=== PATIENT | male | born 1990 | race African-American/Black ===

== ENCOUNTER 2018-02-25 21:16 | Inpatient (IN) | payer MEDICARE ==
[~2018-02-25] VITALS: Ht 182.9 cm; Wt 79.1 kg
[~2018-02-25 21:16] MED LIST: CARV12.52 PO; HYDR-4077 PO; LISI-603 PO; NIFE10CA2 PO
[2018-02-25 22:51] LABS: BASOPHILS % (AUTO) 0.8 % (0.0-2.0); EOSINOPHILS % (AUTO) 5.2 % (0.0-6.0); HEMATOCRIT 22 % (39-51); HEMOGLOBIN 7.3 g/dL (13.5-17.5); LYMPHOCYTES # (AUTO) 0.7 /CMM (0.8-4.8); LYMPHOCYTES % (AUTO) 14.8 % (20.0-44.0); MEAN CORPUSCULAR HGB CONC 33 g/dl (31.0-36.0); MEAN CORPUSCULAR VOLUME 96 fL (80-96); MONOCYTES # (AUTO) 0.5 /CMM (0.1-1.30); NEUTROPHILS # (AUTO) 3.1 /CMM (1.8-8.9); NEUTROPHILS % (AUTO) 68.2 % (43.0-81.0); PLATELET COUNT (AUTO) 177 /CMM (150-450); RED BLOOD CELL COUNT(AUTO) 2.32 MIL/uL (4.5-6.0); WHITE BLOOD COUNT (AUTO) 4.6 K/uL (4.3-11.0)
[2018-02-25 23:01] LABS: CALCIUM, SERUM 8.4 mg/dL (8.5-10.1)
[2018-02-25 23:03] LABS: CREATININE 13.6 mg/dL (0.6-1.3); POTASSIUM 6.7 mmol/L (3.5-5.1)
--- NOTE | 2018-02-25 23:20 | NUR ---
PT BIBSELF COMPLAINING OF ABNORMAL LABS. PT STATES CLINIC WOULDN'T DO DIALYSIS ON HIM DUE TO HIGH POTASSIUM. PT AAOX4. RESPIRATIONS EVEN AND UNLABORED. NO ACUTE DISTRESS NOTED. PT PLACED ON MONITOR, WILL CONTINUE TO MONITOR
[2018-02-25] MEDS ORDERED: SODIUM POLYSTYRENE SULFONATE 15 G/60 ML BOTTLE ONE (23:21)
[2018-02-25] MEDS ORDERED: FUROSEMIDE 20 MG/2 ML VIAL ONE (23:21)
[2018-02-25] MEDS ORDERED: CALCIUM CHLORIDE 1,000 MG/10 ML DISP.SYRIN ONE (23:22)
[2018-02-25] MEDS ORDERED: SODIUM BICARBONATE SYR 50 MEQ/50 ML DISP.SYRIN ONE (23:22)
[2018-02-25] MEDS ORDERED: SODIUM BICARBONATE SYR 50 MEQ/50 ML DISP.SYRIN IV ONE (23:30)
[2018-02-25] MEDS ORDERED: ALBUTEROL FS 2.5 MG/3 ML VIAL.NEB NEB ONE (23:30)
[2018-02-25] MEDS ORDERED: FUROSEMIDE 40 MG/4 ML VIAL IV ONE (23:30)
[2018-02-25] MEDS ORDERED: CALCIUM CHLORIDE 1,000 MG/10 ML DISP.SYRIN IV ONE (23:30)
[2018-02-25] MEDS ORDERED: SODIUM POLYSTYRENE SULFONATE 15 G/60 ML BOTTLE PO ONE (23:30)
[2018-02-25] MEDS ORDERED: ALBUTEROL FS 2.5 MG/3 ML VIAL.NEB ONE (23:43)
[2018-02-26] MEDS ORDERED: HYDR-4077 PO (00:18)
[2018-02-26] MEDS ORDERED: NIFE30TA91 PO (00:18)
[2018-02-26] MEDS ORDERED: LOSA1TAB36 PO (00:18)
[2018-02-26] MEDS ORDERED: CARV12.52 PO (00:18)
[2018-02-26 00:25] VITALS: BP 158/101
--- NOTE | 2018-02-26 00:26 | NUR ---
PT TRANSFERRED PER ACLS PROTOCOL
--- NOTE | 2018-02-26 00:35 | NUR ---
TELE/RN NOTES SPOKE TO DR. HERNADEZ. SHE WILL BE ORDERING 1 UNIT PRBC HOWEVER WITH ORDERS NOT TO GIVE TONIGHT. TO BE GIVEN WITH DIALYSIS IN AM. READBACK PER PROTOCOL, WILL ENDORSE TO DAY SHIFT
--- NOTE | 2018-02-26 00:50 | NUR ---
TELE/RN OPENING NOTES PT RECEIVED TO UNIT FROM ER VIA WHEELCHAIR. A/OX3. ON ROOM AIR, BREATHING EVEN AND UNLABORED. DENIES SOB AND PAIN. IN NO ACUTE DISTRESS. IV TO LAC PATENT AND INTACT. ORIENTED PT TO ROOM AND CALL LIGHT BED IN LOW/LOCKED POSITION WITH CALL LIGHT IN REACH. BILATERAL UPPER SIDE RAILS IN PLACE. PLACED ON TELE MONITOR, SHOWING SR 80'S. WILL CONTINUE TO MONITOR
[2018-02-26 05:00] VITALS: BP 184/104
--- NOTE | 2018-02-26 05:35 | NUR ---
TELE/RN NOTES BP ELEVATED TWICE: 187/104, HR 76 & 184/114, HR 78. PAGED MD HERNADEZ FOR PRN ORDERS. PT TO HAVE HD TODAY BUT TIME IS UNKNOWN. AWAITING RESPONSE.
--- NOTE | 2018-02-26 06:12 | NUR ---
TELE/RN NOTES MD HERNADEZ PAGED AGAIN. AWAITING RESPONSE
[2018-02-26] MEDS ORDERED: NIFEdipine (10MG) 10 MG CAPSULE ONE (06:37)
[2018-02-26] MEDS: NIFEdipine (10MG) 10 MG CAPSULE PO SCH ×3 (06:44→16:24)
--- NOTE | 2018-02-26 06:45 | NUR ---
TELE/RN NOTES WOOL CLASSER AWARE OF ELEVATED BP AND PLAN FOR HD TODAY. UNABLE TO OBTAIN PRN ORDER AT THIS TIME. RECOMMENDED GIVING SCHEDULED PROCARDIA EARLY TO CONTROL BP. RN UNABLE TO PULL PROCARDIA FROM EITHER PYXIS. WOOL CLASSER OVERRIDE MEDICATION AND ADMINISTERED TO PT. WILL ENDORSE TO DAY SHIFT RN AND MONITOR FOR HYPOTENSION.
--- NOTE | 2018-02-26 07:10 | NUR ---
TELE/RN CLOSING NOTES PT ASLEEP IN BED. ON ROOM AIR, BREATHING EVEN AND UNLABORED. A/OX3. IN NO ACUTE DISTRESS. DENIES SOB OR PAIN. IV TO LAC PATENT AND INTACT. RFA SHUNT PRESENT. ALL EXTREMITIES NOTED WITH EDEMA. NO SIGNIFICANT CHANGES OVERNIGHT. EXTERNAL VENEER DRIER FEEDER SHOWS SR 83. ALL NEEDS MET. PT AWARE OF PLAN FOR HD TODAY. BED IN LOW/LOCKED POSITION WITH CALL LIGHT IN REACH. BILATERAL UPPER SIDE RAILS IN PLACE. WILL ENDORSE TO DAY SHIFT RN SPENCER.
[2018-02-26 07:45] LABS: CALCIUM, SERUM 8.7 mg/dL (8.5-10.1)
[2018-02-26 07:49] LABS: CREATININE 14.3 mg/dL (0.6-1.3); POTASSIUM 6.9 mmol/L (3.5-5.1)
[2018-02-26 08:00] VITALS: BP_SYST 149; BP_SYST 151; BP_DIAS 83; BP_DIAS 87
[2018-02-26] MEDS: CARVEDILOL 12.5 MG TABLET PO SCH ×2 (08:06→20:30)
--- NOTE | 2018-02-26 08:10 | NUR ---
TELE/RN OPENING NOTE THE PATIENT IS RECEIVED IN BED AWAKE. PATIENT IS ALERT AND ORIENTED X4. IN ROOM AIR AND DENIES SOB. RESPIRATION REGULAR AND UNLABORED. DENIES PAIN. LAC G 18 PATENT AND SALINE LOCKED. RIGHT ARM AV SHUNT POSITIVE FOR BRUIT AND THRILL. BED LOW AND LOCKED. SIDE RAILS UP X2. CALL LIGHT WITHIN REACH. WILL CONTINUE TO MONITOR.
[2018-02-26] MEDS ORDERED: LISINOPRIL (20MG) 20 MG TABLET PO SCH (09:00)
--- NOTE | 2018-02-26 09:30 | NUR ---
TELE/RN NOTE DR HOBBS IS MADE AWARE OF POTASSIUM LEVEL OF 6.9. PER DR HOBBS THE PATIENT WILL HAVE DIALYSIS TODAY.
[2018-02-26] MEDS: LOSARTAN/HCTZ 50-12.5MG/ 1 EA TABLET PO SCH (11:17)
--- NOTE | 2018-02-26 11:18 | NUR ---
TELE/RN NOTE REYZAAR GIVEN LATER THAT SCHEDULED ADMINISTRATION TIME PER PATIENT REQUEST. BLOOD PRESSURE IS 164/89. WILL CONTINUE TO MONITOR.
[2018-02-26 12:00] VITALS: BP 149/83
[2018-02-26 16:00] VITALS: BP 149/82
--- NOTE | 2018-02-26 18:34 | NUR ---
TELE/RN CLOSING NOTE THE PATIENT ALERT AND ORIENTED X4. DENIES SOB. IN ROOM AIR AND SATURATION AT 97%. DENIES PAIN. THE PATIENT IN NO APPARENT DISTRESS. LAC G 18 PATENT AND SALINE LOCKED. GETTING DIALYSIS NOW. BED LOW AND LOCKED. SIDE RAILS UP X3. CALL LIGHT WITHIN REACH. WILL CONTINUE TO MONITOR.
--- NOTE | 2018-02-26 18:35 | NUR ---
WILL ENDORSE TO SILVER PLATER.
--- NOTE | 2018-02-26 18:54 | NUR ---
TELE/RN NOTE TELE BOX READING IS SR 86.
--- NOTE | 2018-02-26 19:15 | NUR ---
TELE/RN NOTE THE PATIENT REQUESTING TO TAKE HIS COREG DUE AT 1800 AFTER DIALYSIS WHICH SHOULD FINISH IN 30 MIN. GEOLOGIST IS ENDORSED.
[2018-02-26 20:00] VITALS: BP 145/71
--- NOTE | 2018-02-26 20:15 | NUR ---
RECIEVED ; ALERT AND ORIENTATED SMILING ANDHD UNDING. HD NURSE INFORMED ME 4 LITERS REMOVED. PATIENT'S SKIN WARM AND DRY . VISITOR AT THE BEDSIDE.
--- NOTE | 2018-02-26 20:35 | NUR ---
blood bank was called stated blood good for 3 days spoke to Arlyn. Called MD Terry and told her that the 1 unit PRBC WAS NOT GIVEN WITH THE HD TODAY , AND COULD IT BE GIVEN TOMORROW IN THE AM WITH ORDERED HD. PATIENT MADE ONEILL THAT HE WOULD BE RECIEVING BLOOD WITH HD IN THE AM.
[2018-02-27] VITALS: BP 133/65
[2018-02-27 04:00] VITALS: BP 162/87
--- NOTE | 2018-02-27 06:19 | NUR ---
MR. MCGEE UP AND ABOUT AMBULATING IN THE ROOM. WHEN I ASKED HIM TO SIGN THE CONSENT FOR THE BLOOD TRANSFUSION TO BE GIVEN TODAY WITH HD HE COMMENTED, " NO BLOOD, I FEEL GREAT." EXPLAINED TO HIM ABOUT THE NEED FOR 1 UNIT TO REPLACE THE BLOOD LEVEL WHICH IS 7.2. HE STATED HE KNOWS ABOUT HBG AND HCT, HE DOESN'T WANT THE BLOOD. THEY CONSENT TO REFUE THE BLOOD SIGNED. HD LAST NIGHT FINISHED AT 1999.
[2018-02-27 06:20] VITALS: BP 162/87
--- NOTE | 2018-02-27 07:25 | NUR ---
INK JET OPERATOR INITIAL NOTES Report received at bedside. Patient received in bed, awake, and comfortable. Alert and oriented x4, verbally responsive. Denies any pain at the moment. No SOB/labored breathing noted. Planned HD today with 1 unit of blood ordered: Patient refused unit of blood today but okay to get HD. Explained risks vs benefits but patient continues to refuse blood transfusion today. Safety measures in place. Will continue to monitor and assess patient. Call light within reach. TELE: SR 92 Addendum: 02/27/18 at 1128 by MISHA ATKINSON RN MD made aware of blood transfusion refusal and critical lab value
[2018-02-27 07:40] LABS: BASOPHILS % (AUTO) 1.1 % (0.0-2.0); HEMATOCRIT 22 % (39-51); HEMOGLOBIN 7.3 g/dL (13.5-17.5); LYMPHOCYTES # (AUTO) 0.6 /CMM (0.8-4.8); LYMPHOCYTES % (AUTO) 14.3 % (20.0-44.0); MEAN CORPUSCULAR HGB CONC 34 g/dl (31.0-36.0); MEAN CORPUSCULAR VOLUME 95 fL (80-96); MONOCYTES # (AUTO) 0.6 /CMM (0.1-1.30); MONOCYTES % (AUTO) 14.9 % (2.0-12.0); NEUTROPHILS # (AUTO) 2.7 /CMM (1.8-8.9); NEUTROPHILS % (AUTO) 66.7 % (43.0-81.0); PLATELET COUNT (AUTO) 163 /CMM (150-450); RED BLOOD CELL COUNT(AUTO) 2.29 MIL/uL (4.5-6.0)
[2018-02-27 07:49] LABS: CALCIUM, SERUM 8.2 mg/dL (8.5-10.1)
[2018-02-27 07:54] LABS: CREATININE 10.9 mg/dL (0.6-1.3); POTASSIUM 6.2 mmol/L (3.5-5.1)
[2018-02-27 08:00] VITALS: BP 144/85
[2018-02-27] MEDS: CARVEDILOL 12.5 MG TABLET PO SCH ×2 (08:36→17:09)
[2018-02-27] MEDS: NIFEdipine (10MG) 10 MG CAPSULE PO SCH ×3 (09:00→16:30)
[2018-02-27] MEDS: LOSARTAN/HCTZ 50-12.5MG/ 1 EA TABLET PO SCH (09:00)
--- NOTE | 2018-02-27 09:23 | NUR ---
BASKET PERSON NON-ADMIN NOTES 2 BP meds not given. HD scheduled today. Sebastián (Dialysis nurse) just arrived and made aware of non-admin BP meds and confirmed. Per patient, he normally takes BP meds after HD. BB given: HR 95. Patient still continues to refuse 1 unit of blood to be transfused during HD. Explained risks vs benefits x3 but still refused. Will continue to monitor and assess patient.
[2018-02-27 16:00] VITALS: BP 157/79
--- NOTE | 2018-02-27 18:28 | NUR ---
HIGH MAN CLOSING NOTES Patient remained in bed, intermittently sleeping, easily aroused. Alert and oriented x4, verbally responsive. Denies any type of pain. Not in any type of distress. Today's HD output 3.0L. No SOB or labored breathing noted. Afebrile. All due meds given and tolerated. Kept patient clean and dry. All needs provided and met. Safety measures in place. Bed in locked and lowest position with call light within reach. Will endorse to oncoming shift nurse Addendum: 02/27/18 at 1829 by MISHA ATKINSON RN TELE: Sinus Tachy 104
--- NOTE | 2018-02-27 19:25 | NUR ---
TELERN ASLEEP, EASILY AROUSABLE. V/S STABLE FOR NOW. NO OTHER NEEDS MADE.
[2018-02-27 20:00] VITALS: BP 146/77
--- NOTE | 2018-02-27 22:50 | NUR ---
TELERN REMAINS UNCHANGED. REMAINS SR ON THE MONITOR. CLOSELY WATCHED.
--- NOTE | 2018-02-28 00:20 | NUR ---
TELERN ASLEEP, SR ON THE MONITOR. CONTINUED MONITORING
[2018-02-28 04:00] VITALS: BP 166/102
[2018-02-28 06:30] LABS: BASOPHILS % (AUTO) 0.9 % (0.0-2.0); EOSINOPHILS % (AUTO) 3.2 % (0.0-6.0); HEMATOCRIT 22 % (39-51); HEMOGLOBIN 7.3 g/dL (13.5-17.5); LYMPHOCYTES # (AUTO) 0.7 /CMM (0.8-4.8); LYMPHOCYTES % (AUTO) 17.7 % (20.0-44.0); MEAN CORPUSCULAR HGB CONC 34 g/dl (31.0-36.0); MEAN CORPUSCULAR VOLUME 94 fL (80-96); MONOCYTES # (AUTO) 0.7 /CMM (0.1-1.30); MONOCYTES % (AUTO) 17.7 % (2.0-12.0); NEUTROPHILS # (AUTO) 2.4 /CMM (1.8-8.9); NEUTROPHILS % (AUTO) 60.5 % (43.0-81.0); PLATELET COUNT (AUTO) 159 /CMM (150-450); RED BLOOD CELL COUNT(AUTO) 2.33 MIL/uL (4.5-6.0)
[2018-02-28 06:49] LABS: CALCIUM, SERUM 8.4 mg/dL (8.5-10.1); POTASSIUM 5.5 mmol/L (3.5-5.1)
[2018-02-28 06:53] LABS: CREATININE 9.7 mg/dL (0.6-1.3)
--- NOTE | 2018-02-28 06:55 | NUR ---
TELERN REMAINS SR ON THE MONITOR. ALL NEEDS ATTENDED.
--- NOTE | 2018-02-28 07:15 | NUR ---
CROP AND SOIL TECHNICIAN INITIAL NOTES Report received at bedside. Patient received in chair, awake, and comfortable. Alert and oriented x4, verbally responsive. Denies any pain at the moment. No SOB/labored breathing noted. Safety measures in place. Will continue to monitor and assess patient. Call light within reach. TELE: SR 82
[2018-02-28] MEDS: CARVEDILOL 12.5 MG TABLET PO SCH ×2 (07:45→17:04)
[2018-02-28 08:00] VITALS: BP 155/80
[2018-02-28] MEDS: NIFEdipine (10MG) 10 MG CAPSULE PO SCH ×3 (08:58→17:04)
[2018-02-28] MEDS: LOSARTAN/HCTZ 50-12.5MG/ 1 EA TABLET PO SCH (08:59)
[2018-02-28 12:00] VITALS: BP 157/97
[2018-02-28 16:00] VITALS: BP 141/76
--- NOTE | 2018-02-28 18:16 | NUR ---
READING RECOVERY TEACHER CLOSING NOTES Patient remained in bed, intermittently sleeping, easily aroused. Alert and oriented x4, verbally responsive. Denies any type of pain. Not in any type of distress. HD tomorrow AM as ordered 03/01/18. No SOB or labored breathing noted. Afebrile. All due meds given and tolerated. Kept patient clean and dry. All needs provided and met. Safety measures in place. Bed in locked and lowest position with call light within reach. Will endorse to oncoming shift nurse. TELE: Sinus Rhythm 98-99; asymptomatic
--- NOTE | 2018-02-28 19:30 | NUR ---
RN NOTE; RECEIVED PT IN BED SLEEPING. AROUSES EASILY. BREATHING EVENLY. NO SOB. NAD .SKIN WARM AND DRY. SR W/ RATE OF 90s ON TELE MONITOR . CALL LIGHT WITHIN REACH. WILL CONT TO MONITOR,
[2018-02-28 20:00] VITALS: BP 152/87
[2018-03-01] VITALS: BP 149/83
[2018-03-01 04:00] VITALS: BP 159/98
--- NOTE | 2018-03-01 06:48 | NUR ---
PT IN BED SLEEPING. AROUSES EASILY. BREATHING EVENLY. NO SOB. NO ACUTE EVENT DURING THE NIGHT. REMAINED SR ON TELE MONITOR W/ NO S/S OR C/O DISCOMFORT .NEEDS ATTENDED. CALL LIGHT WITHIN REACH, WILL CONT TO MONITOR AND WILL ENDORSE TO AM SHIFT FOR SPENCER.
[2018-03-01 07:03] LABS: CALCIUM, SERUM 8.4 mg/dL (8.5-10.1); POTASSIUM 5.7 mmol/L (3.5-5.1)
--- NOTE | 2018-03-01 07:15 | NUR ---
BEER STILL RUNNER COMPOUNDER INITIAL NOTES Report received at bedside. Patient received in bed, sleeping comfortably, easily aroused. Alert and oriented x4, verbally responsive. Denies any pain at the moment. No SOB/labored breathing noted. Planned HD today. Safety measures in place. Will continue to monitor and assess patient. Call light within reach. Addendum: 03/01/18 at 0751 by MISHA ATKINSON RN LEADS REPLACED: TELE Sinus Rhythm 95
[2018-03-01 07:38] LABS: CREATININE 12.4 mg/dL (0.6-1.3)
[2018-03-01] MEDS: NIFEdipine (10MG) 10 MG CAPSULE PO SCH ×3 (08:10→16:35)
[2018-03-01] MEDS: CARVEDILOL 12.5 MG TABLET PO SCH ×2 (08:11→18:30)
[2018-03-01] MEDS: LOSARTAN/HCTZ 50-12.5MG/ 1 EA TABLET PO SCH (08:11)
[2018-03-01] MEDS ORDERED: hydrALAZINE HCL 50 MG TABLET PO SCH (13:00)
--- NOTE | 2018-03-01 14:15 | NUR ---
MS PARKER NOTES Patient is alert and oriented x4, no episodes of altered mental status. Patient pulled out his IV access and when asked why, he responded, "It was bothering me and I've had it since I got here and it hasn't really been used. So I tried to pull it out but it started bleeding." Removed IV access with cath tip intact. Put pressure on the site and bleeding stopped. Patient actually ripped off on of the tubes connecting the port to the cath. Bed linens changed and blankets replaced. Kept patient clean and dry. Addendum: 03/01/18 at 1924 by MISHA ATKINSON RN Provider made aware of no IV access. Patient refused to have IV insertion. Waiting for further instructions from Provider (DAMON)
[2018-03-01 16:00] VITALS: BP 140/94
--- NOTE | 2018-03-01 18:27 | NUR ---
MS RN CLOSING NOTES Patient remained in bed, awake, and verbally responsive. Alert and oriented x4. Denies any pain at the moment. Denies any N/V/Dizziness. Not in any type of distress. No SOB/labored breathing noted. New order of Hydralazine to control blood pressure. HD today 03/01/18 with 3.0L output. Afebrile. No complaints of any chest pain, dizziness or weakness. All due meds given and tolerated. All anticipated needs provided and met. Safety measures in place. Bed in locked and lowest position with call light within reach. Will endorse to oncoming shift nurse.
--- NOTE | 2018-03-01 19:39 | NUR ---
RN MS OPENING NOTES RECEIVED PATIENT STANDING BY THE BED, LOOKING OUT THE WINDOW, LISTENING TO MUSIC. ALERT AND ORIENTED X4, VERBALLY RESPONSIVE, ABLE TO MAKE NEEDS KNOWN. BREATHING EVEN AND UNLABORED. NO SOB NOTED. TOLERATING ROOM AIR. NO IV ACCESS DUE TO PATIENT PULLING IT OUT TODAY. MD WAS MADE AWARE - AWAITING FOR FURTHER INSTRUCTIONS. SKIN DRY AND WARM TO TOUCH. AFEBRILE. NO COMPLAINTS OF PAIN OR DISCOMFORT. NO FACIAL GRIMACING. RIGHT UPPER ARM HD CATH INTACT. ALL OTHER NEEDS ATTENDED TO. SAFETY MEASURES IN PLACE. CALL LIGHT WITHIN REACH. WILL CONTINUE TO MONITOR.
[2018-03-01 20:00] VITALS: BP 169/98
[2018-03-01] MEDS: hydrALAZINE HCL 50 MG TABLET PO SCH (21:25)
--- NOTE | 2018-03-01 23:28 | NUR ---
RN MS NOTES ON-CALL MD NOTIFIED THAT PATIENT REFUSES TO HAVE IV ACCESS DESPITE EXPLANATION OF RISKS AND BENEFITS. PATIENT IS FOR D/C PLANNING TOMORROW. NO IV MEDS. PER MD, OK NOT TO HAVE IV ACCESS. ORDER NOTED AND CARRIED OUT.
[2018-03-02] MEDS: hydrALAZINE HCL 50 MG TABLET PO SCH ×3 (05:05→13:50)
--- NOTE | 2018-03-02 06:39 | NUR ---
RN MS CLOSING NOTES PATIENT IN BED AWAKE. NO ACUTE CHANGES THROUGHOUT SHIFT. BREATHING EVEN AND UNLABORED. NO SOB NOTED. TOLERATING ROOM AIR. NO IV ACCESS MD WAS MADE AWARE - SKIN DRY AND WARM TO TOUCH. AFEBRILE. NO COMPLAINTS OF PAIN OR DISCOMFORT. NO FACIAL GRIMACING. RIGHT UPPER ARM HD CATH INTACT. ALL OTHER NEEDS WERE ATTENDED TO. SAFETY MEASURES IN PLACE. CALL LIGHT WITHIN REACH. WILL ENDORSE TO ONCOMING NURSE FOR SPENCER.
[2018-03-02 06:57] LABS: CALCIUM, SERUM 8.5 mg/dL (8.5-10.1); CREATININE 10.9 mg/dL (0.6-1.3); POTASSIUM 5.3 mmol/L (3.5-5.1)
[2018-03-02 08:00] VITALS: BP 198/126
--- NOTE | 2018-03-02 08:00 | NUR ---
MS RN NOTES RECEIVED PATIENT AWAKE IN BED. NO DISTRESS NOTED. CALL LIGHT WITHIN REACH. AV SHUNT ON JUDY INTACT WITH NO SWELLING, REDNESS, OR DRAINAGE NOTED AND WITH (+) BRUIT AND THRILL. NO C/O PAIN OR DISCOMFORT. BED AT LOW LOCK SETTING. ALL BELONGINGS KEPT NEAR BEDSIDE. WILL CONTINUE TO MONITOR.
[2018-03-02] MEDS: LOSARTAN/HCTZ 50-12.5MG/ 1 EA TABLET PO SCH (08:42)
[2018-03-02] MEDS: NIFEdipine (10MG) 10 MG CAPSULE PO SCH ×3 (08:42→13:38)
[2018-03-02] MEDS: CARVEDILOL 12.5 MG TABLET PO SCH (08:42)
[2018-03-02] MEDS ORDERED: NIFE-2 PO (11:50)
[2018-03-02 13:41] VITALS: BP 161/111
[2018-03-02 13:50] VITALS: BP 160/93
--- NOTE | 2018-03-02 15:10 | NUR ---
DISCHARGED PT HOME VIA TAXI WITH STABLE V/S.AMBULATORY WITH STEADY GAIT.NO IV ACCESS.DENIES ANY PAIN OR DISTRESS.JUDY HD ACCESS REMAINS INTACT WITH CLEAN AND DRY DRESSING.
== END 2018-03-02 15:00 | disposition home or self-care (01) | DRG 640 ==
LOC: ER 21:20 → TELE 02-26 00:03 → MED 03-01 10:14
PROVIDERS: ADMIT Internal Medicine
PROC: 5A1D70Z Performance of Urinary Filtration, Intermittent, Less than 6 Hours Per Day (ICD-10-PCS; principal; 2018-02-26)
PROC: 5A1D70Z Performance of Urinary Filtration, Intermittent, Less than 6 Hours Per Day (ICD-10-PCS; 2018-02-27)
PROC: 5A1D70Z Performance of Urinary Filtration, Intermittent, Less than 6 Hours Per Day (ICD-10-PCS; 2018-03-01)
DX: E87.5 Hyperkalemia (principal); N18.6 End stage renal disease; I12.0 Hypertensive chronic kidney disease with stage 5 chronic kidney disease or end stage renal disease; D63.1 Anemia in chronic kidney disease; E78.5 Hyperlipidemia, unspecified; F17.210 Nicotine dependence, cigarettes, uncomplicated; I25.10 Atherosclerotic heart disease of native coronary artery without angina pectoris; Z91.19 Patient's noncompliance with other medical treatment and regimen; F19.11 Other psychoactive substance abuse, in remission; D72.819 Decreased white blood cell count, unspecified; Z99.2 Dependence on renal dialysis
CPT/HCPCS: 36415; 80048-TC; 85025-TC; 85730-TC; 86850-TC; 86921-TC; 87081-TC; 90935-TC; A4606; A6403; G0378; J1940; J3490; Z7610

== ENCOUNTER 2020-03-16 18:45 | Inpatient (IN) | payer MEDICARE ==
[~2020-03-16] VITALS: Ht 182.9 cm; Wt 72.6 kg
[~2020-03-16 18:45] MED LIST changes: +LOSA1TAB36 PO; +NIFE-57 PO; -NIFE10CA2 PO
--- NOTE | 2020-03-16 19:00 | NUR ---
PT [id number], FROM HOME C/O NAUSEA AND VOMITING AND WEAKNESS, MISSED HD X3 DAYS. PT IS AAOX4, NOT IN RESPIRATORY DISTRESS, HOOKED TO GAME AUTHOR, KEPT RESTED AND COMFORTABLE. WILL CONTINUE TO MONITOR.
[2020-03-16] MEDS ORDERED: ONDANSETRON HCL/PF 4 MG/2 ML VIAL IVP ONE (19:30)
--- NOTE | 2020-03-16 19:31 | NUR ---
SEEN AND EXAMINED BY .
--- NOTE | 2020-03-16 19:40 | NUR ---
IV LINE ESTABLISHED BLOOD DRAWN AND SENT TO LAB.
[2020-03-16] MEDS ORDERED: ONDANSETRON HCL/PF 4 MG/2 ML VIAL ONE (19:43)
[2020-03-16 19:58] LABS: BASOPHILS % (AUTO) 0.9 % (0.0-2.0); EOSINOPHILS % (AUTO) 1.8 % (0.0-6.0); HEMATOCRIT 24 % (39-51); HEMOGLOBIN 7.8 g/dL (13.5-17.5); LYMPHOCYTES # (AUTO) 0.6 /CMM (0.8-4.8); LYMPHOCYTES % (AUTO) 12.7 % (20.0-44.0); MEAN CORPUSCULAR HGB CONC 33 g/dl (31.0-36.0); MEAN CORPUSCULAR VOLUME 94 fL (80-96); MONOCYTES # (AUTO) 0.3 /CMM (0.1-1.30); MONOCYTES % (AUTO) 6.7 % (2.0-12.0); NEUTROPHILS # (AUTO) 3.5 /CMM (1.8-8.9); NEUTROPHILS % (AUTO) 77.9 % (43.0-81.0); PLATELET COUNT (AUTO) 110 /CMM (150-450); RED BLOOD CELL COUNT(AUTO) 2.51 MIL/uL (4.5-6.0); WHITE BLOOD COUNT (AUTO) 4.5 K/uL (4.3-11.0)
--- NOTE | 2020-03-16 19:59 | NUR ---
COVID SWAB OBTAINED AND SENT TO LAB
[2020-03-16 20:29] LABS: ALBUMIN 3.5 g/dL (3.4-5.0); BILIRUBIN,DIRECT 0.1 mg/dL (0.0-0.2); BILIRUBIN,TOTAL 0.6 mg/dL (0.2-1.0); CALCIUM, SERUM 8.8 mg/dL (8.5-10.1); TOTAL PROTEIN, SERUM 7.3 g/dL (6.4-8.2)
[2020-03-16 20:31] LABS: CREATININE 23.8 mg/dL (0.6-1.3); POTASSIUM 7.5 mmol/L (3.5-5.1)
[2020-03-16] MEDS ORDERED: SODIUM POLYSTYRENE SULFONATE 15 G/60 ML BOTTLE ONE (20:58)
[2020-03-16] MEDS ORDERED: INSULIN REGULAR, HUMAN 100 UNIT/ML 10 ML VIAL ONE (20:59)
[2020-03-16] MEDS ORDERED: CALCIUM CHLORIDE 1,000 MG/10 ML DISP.SYRIN ONE (20:59)
[2020-03-16] MEDS ORDERED: DEXTROSE 50%-WATER 50 ML DISP.SYRIN ONE (20:59)
[2020-03-16] MEDS ORDERED: SODIUM BICARBONATE SYR 50 MEQ/50 ML DISP.SYRIN ONE (20:59)
[2020-03-16] MEDS ORDERED: SODIUM POLYSTYRENE SULFONATE 15 G/60 ML BOTTLE PO ONE (21:00)
[2020-03-16] MEDS ORDERED: SODIUM BICARBONATE SYR 100 MEQ in IV D5W 1,000 ML IV ONE (21:00)
[2020-03-16] MEDS ORDERED: INSULIN REGULAR, HUMAN 100 UNIT/ML 10 ML VIAL IV ONE (21:00)
[2020-03-16] MEDS ORDERED: CALCIUM CHLORIDE 1,000 MG/10 ML DISP.SYRIN IV ONE (21:00)
[2020-03-16] MEDS ORDERED: DEXTROSE 50%-WATER 50 ML DISP.SYRIN IV ONE (21:00)
--- NOTE | 2020-03-16 21:20 | NUR ---
pt ambulatory to the bathroom
[2020-03-16] MEDS ORDERED: SODIUM BICARBONATE SYR 50 MEQ/50 ML DISP.SYRIN IV ONE (21:30)
[2020-03-16] MEDS ORDERED: HYDROCODONE/APAP 5/325MG TABLET PO PRN (22:00)
[2020-03-16] MEDS ORDERED: ONDANSETRON HCL/PF 4 MG/2 ML VIAL IVP PRN (22:00)
[2020-03-16] MEDS ORDERED: HOME MED MISCELLANEOUS XX SCH (22:00)
[2020-03-16] MEDS ORDERED: MAGNESIUM HYDROXIDE 30 ML UDC PO PRN (22:00)
[2020-03-16] MEDS ORDERED: HYDROCODONE/APAP 10/325MG TABLET PO PRN (22:00)
[2020-03-16] MEDS ORDERED: TEMAZEPAM 15 MG CAPSULE PO PRN (22:00)
[2020-03-16] MEDS ORDERED: ACETAMINOPHEN 325 MG TABLET PO PRN (22:00)
[2020-03-16] MEDS ORDERED: Z GUARD REMEDY 2 OZ OINT TP PRN (22:00)
[2020-03-16] MEDS ORDERED: MAG HYDROX/AL HYDROX/SIMETH 30 ML UDC PO PRN (22:00)
[2020-03-16] MEDS ORDERED: hydrALAZINE HCL 50 MG TABLET ONE (22:36)
[2020-03-16] MEDS: hydrALAZINE HCL 50 MG TABLET PO SCH (22:42)
[2020-03-16] MEDS ORDERED: TEMAZEPAM 15 MG CAPSULE ONE (22:43)
--- NOTE | 2020-03-16 22:44 | NUR ---
restoril given as ordered per pt's request. will cont to monitor ,
--- NOTE | 2020-03-17 | NUR ---
Patient is resting comfortably in bed with eyes closed. Easily aroused. will cont to monitor ,
[2020-03-17 05:31] LABS: BASOPHILS % (AUTO) 1.1 % (0.0-2.0); EOSINOPHILS % (AUTO) 0.3 % (0.0-6.0); HEMATOCRIT 22 % (39-51); HEMOGLOBIN 7.2 g/dL (13.5-17.5); LYMPHOCYTES # (AUTO) 0.7 /CMM (0.8-4.8); LYMPHOCYTES % (AUTO) 17.9 % (20.0-44.0); MEAN CORPUSCULAR HGB CONC 33 g/dl (31.0-36.0); MEAN CORPUSCULAR VOLUME 93 fL (80-96); MONOCYTES # (AUTO) 0.3 /CMM (0.1-1.30); NEUTROPHILS # (AUTO) 2.9 /CMM (1.8-8.9); NEUTROPHILS % (AUTO) 72.7 % (43.0-81.0); PLATELET COUNT (AUTO) 92 /CMM (150-450); RED BLOOD CELL COUNT(AUTO) 2.37 MIL/uL (4.5-6.0)
[2020-03-17] MEDS ORDERED: HYDROCODONE/APAP 10/325MG TABLET ONE (05:35)
--- NOTE | 2020-03-17 05:40 | NUR ---
CALEB 10 GIVEN ORDERED PER PT'S REQUEST FOR C/O LOWER BAD PAIN. WILL CONT TO MONITOR Addendum: 03/17/20 at 0651 by JENNIFER *lower abd pain*
[2020-03-17 05:58] LABS: CALCIUM, SERUM 8.7 mg/dL (8.5-10.1); MAGNESIUM 3.3 mg/dL (1.8-2.4)
[2020-03-17 06:00] LABS: CREATININE 24.3 mg/dL (0.6-1.3); PHOSPHORUS 9.8 mg/dL (2.5-4.9); POTASSIUM 6.9 mmol/L (3.5-5.1)
--- NOTE | 2020-03-17 07:04 | NUR ---
Relayed potassium, BUN and Cr level to [employer] Teacher w/ no new order. pt is to receive HD today.
--- NOTE | 2020-03-17 07:14 | NUR ---
report given to Samy for SPENCER
--- NOTE | 2020-03-17 07:30 | NUR ---
RN ADMITTING NOTES; PT TRANSPORTED TO UNIT BY MARTI AT THIS TIME. PT AOX4. PT ABLE TO MAKE NEEDS KNOWN. NO SOB NOTED, NO C/O PAIN AT THIS TIME, NO S/S OF ANY ACUTE DISTRESS NOTED.PT STABLE ON RA. PT PLACED ON EXTERNAL TELE CHEESE WEIGHER READING SR IN THE 69. SKIN IS INTACT, PINK AND WARM TO TOUCH, PULSES ARE PRESENT BILATERALLY, GOOD CIRCULATION, CAPILLARY REFILL <3 SECONDS. ACTIVE BOWEL SOUNDS IN ALL FOUR QUADRANTS, ABDOMEN SOFT AND NON TENDER. LUNGS ARE CLEAR TO AUSCULTATION. RESPIRATIONS ARE EVEN AND UNLABORED WITH EQUAL RISE AND FALL IN CHEST. PT NOTED WITH IV ACCESS IN LEFT HAND G# 18, INTACT, PATENT AND FLUSHING WELL. RFA AV FISTULA NOTED. ALL BELONGINGS ACCOUNTED FOR AND FILED IN CHART. SAFETY PRECAUTION IN PLACE AND MAINTAINED AT ALL TIMES. BED IN LOWEST LOCKED POSITION, HOB ELEVATED, SIDE RAILS UP X 2, CALL LIGHT AND TABLE WITHIN REACH.
--- NOTE | 2020-03-17 07:32 | NUR ---
pt was transferred to 311 under ACLS.
[2020-03-17 08:00] VITALS: BP 207/124
[2020-03-17] MEDS: PANTOPRAZOLE 40 MG TABLET.DR PO SCH (08:33)
[2020-03-17] MEDS ORDERED: LISINOPRIL (20MG) 20 MG TABLET PO SCH (09:00)
[2020-03-17] MEDS ORDERED: hydrALAZINE HCL 50 MG TABLET PO SCH (09:00)
--- NOTE | 2020-03-17 09:02 | NUR ---
RN CLOSING NOTES PT AWAKE IN BED AT THIS TIME. PT REMAINED STABLE THROUGHOUT SHIFT. ALL CARE, NEED, MEDICATIONS AND TREATMENT ADMINISTERED ANTICIPATED PER ORDER. PT KEPT CLEAN AND DRY. IS S/P HD WITH 3L OUT. ASPIRATION AND SAFETY PRECAUTION IN PLACE AND MAINTAINED AT ALL TIMES. BED IN LOWEST LOCKED POSITION, HOB ELEVATED, SIDE RAILS UP X 2, CALL LIGHT AND TABLE WITHIN REACH. ENDORSED TO MANAGER AUTO NURSE FOR SPENCER
[2020-03-17] MEDS: CARVEDILOL 12.5 MG TABLET PO SCH ×2 (09:19→17:22)
[2020-03-17] MEDS: hydrALAZINE HCL 50 MG TABLET PO SCH ×2 (09:19→17:23)
[2020-03-17] MEDS: NIFEdipine XL (30MG) 30 MG TAB PO SCH ×2 (09:20→17:21)
[2020-03-17 12:00] VITALS: BP 194/94
[2020-03-17 16:00] VITALS: BP 174/92
[2020-03-17] MEDS ORDERED: SEVELAMER CARBONATE 800 MG TABLET PO SCH (18:00)
--- NOTE | 2020-03-17 19:10 | NUR ---
RN NOTE Patient Received. Patient is noted in bed, awake, alert and oriented x4. Currently on room air, breathing even and non labored. No signs of acute distress or shortness of breath. Patient is noted with IV site to left hand 18G noted to be patent and intact. Patient is also noted with RFA AV fistula noted to be intact with no bleeding noted. Patient continues on the tele monitor and noted to be NSR. Safety measures are in place, bed is in lowest position and locked. Call light within reach. All needs attended to promptly. Will continue plan of care as ordered.
[2020-03-17 20:00] VITALS: BP 153/95
[2020-03-18] VITALS: BP 173/89
[2020-03-18] MEDS: hydrALAZINE HCL 50 MG TABLET PO SCH ×4 (00:35→18:16)
[2020-03-18 04:00] VITALS: BP_SYST 117; BP_SYST 171; BP_DIAS 89
--- NOTE | 2020-03-18 06:03 | NUR ---
RN NOTE Patient was noted with elevated blood pressure of 186/85. Relayed to Dr. Mckenna. With no new orders at this time. Patient denies any signs and symptoms of hypertension. Patient is scheduled for blood pressure medications for AM.
--- NOTE | 2020-03-18 07:31 | NUR ---
RN NOTE Patient is noted in bed, awake, alert and oriented x4. Currently on room air, breathing even and non labored. No signs of acute distress or shortness of breath. Patient is noted with IV site to left hand 18G noted to be patent and intact. Patient is also noted with RFA AV fistula noted to be intact with no bleeding noted. Patient continues on the tele monitor and noted to be NSR. Safety measures are in place, bed is in lowest position and locked. Call light within reach. All needs attended to promptly. Will endorse to continue plan of care as ordered. Addendum: 03/19/20 at 0650 by MARY BYNUM RN ENTERED IN ERROR AT WRONG TIME.
[2020-03-18 08:00] VITALS: BP 197/104
[2020-03-18] MEDS: SEVELAMER CARBONATE 800 MG TABLET PO SCH ×3 (08:56→18:13)
[2020-03-18] MEDS: NIFEdipine XL (30MG) 30 MG TAB PO SCH ×2 (08:56→18:16)
[2020-03-18] MEDS: CARVEDILOL 12.5 MG TABLET PO SCH ×2 (08:58→18:17)
[2020-03-18] MEDS: PANTOPRAZOLE 40 MG TABLET.DR PO SCH (08:59)
[2020-03-18] MEDS: MINOXIDIL (2.5MG) 2.5 MG TABLET PO SCH (12:24)
[2020-03-18 12:47] VITALS: BP 188/103
[2020-03-18 16:00] VITALS: BP 154/94
--- NOTE | 2020-03-18 18:00 | NUR ---
RECEIVED PT. IN AM ALERT AND ORIENTED X4.BP HIGH.MEDS GIVEN.DIALYZED THIS JIN. 1.7 L REMOVED.
--- NOTE | 2020-03-18 19:31 | NUR ---
RN NOTE Patient is noted in bed, awake, alert and oriented x4. Currently on room air, breathing even and non labored. No signs of acute distress or shortness of breath. Patient is noted with IV site to left hand 18G noted to be patent and intact. Patient is also noted with RFA AV fistula noted to be intact with no bleeding noted. Patient continues on the tele monitor and noted to be NSR. Safety measures are in place, bed is in lowest position and locked. Call light within reach. All needs attended to promptly. Will endorse to continue plan of care as ordered.
[2020-03-18 20:26] VITALS: BP 149/85
[2020-03-19] VITALS (7 sets, daily range): BP systolic 146–165; BP diastolic 70–92
[2020-03-19 06:57] LABS: BASOPHILS # (AUTO) 0.1 /CMM (0.0-0.2); BASOPHILS % (AUTO) 2.5 % (0.0-2.0); EOSINOPHILS % (AUTO) 4.2 % (0.0-6.0); LYMPHOCYTES # (AUTO) 0.8 /CMM (0.8-4.8); MEAN CORPUSCULAR HGB CONC 34 g/dl (31.0-36.0); MEAN CORPUSCULAR VOLUME 91 fL (80-96); MONOCYTES # (AUTO) 0.3 /CMM (0.1-1.30); MONOCYTES % (AUTO) 13.7 % (2.0-12.0); NEUTROPHILS # (AUTO) 1.3 /CMM (1.8-8.9); NEUTROPHILS % (AUTO) 49.6 % (43.0-81.0); PLATELET COUNT (AUTO) 159 /CMM (150-450); RED BLOOD CELL COUNT(AUTO) 2.09 MIL/uL (4.5-6.0); WHITE BLOOD COUNT (AUTO) 2.5 K/uL (4.3-11.0)
[2020-03-19 07:09] LABS: CALCIUM, SERUM 8.4 mg/dL (8.5-10.1); MAGNESIUM 2.4 mg/dL (1.8-2.4); PHOSPHORUS 7.4 mg/dL (2.5-4.9); POTASSIUM 4.7 mmol/L (3.5-5.1)
[2020-03-19 07:21] LABS: CREATININE 12.3 mg/dL (0.6-1.3)
[2020-03-19 07:39] LABS: HEMATOCRIT 19 % (39-51); HEMOGLOBIN 6.5 g/dL (13.5-17.5)
--- NOTE | 2020-03-19 07:44 | NUR ---
RN NOTE Critical lab value of HCT of 19 and HGB of 6.5. Endorsed to morning shift to relay to MD.
[2020-03-19] MEDS: SEVELAMER CARBONATE 800 MG TABLET PO SCH ×3 (08:48→18:04)
[2020-03-19] MEDS: hydrALAZINE HCL 50 MG TABLET PO SCH ×3 (08:50→18:06)
[2020-03-19] MEDS: PANTOPRAZOLE 40 MG TABLET.DR PO SCH (08:50)
[2020-03-19] MEDS: CARVEDILOL 12.5 MG TABLET PO SCH ×2 (08:50→18:05)
[2020-03-19] MEDS: NIFEdipine XL (30MG) 30 MG TAB PO SCH ×2 (08:51→18:05)
[2020-03-19] MEDS: MINOXIDIL (2.5MG) 2.5 MG TABLET PO SCH (08:51)
--- NOTE | 2020-03-19 10:30 | NUR ---
dr. dinero here,aware of low blood count.orders given.
[2020-03-19 12:12] LABS: EOSINOPHILS % (MANUAL) 5 % (0-4); LYMPHOCYTES % (MANUAL) 25 % (16-48); MONOCYTES % (MANUAL) 14 % (0-11.0); NEUTROPHILS % (MANUAL) 56 (42-76)
[2020-03-19] MEDS ORDERED: MINO2.5T PO (14:31)
[2020-03-19] MEDS ORDERED: HYDR-4077 PO (14:31)
[2020-03-19] MEDS ORDERED: NIFE-35 PO (14:31)
[2020-03-19] MEDS ORDERED: CARV12.52 PO (14:31)
[2020-03-19] MEDS ORDERED: SEVE800T7 PO (14:31)
--- NOTE | 2020-03-19 18:55 | NUR ---
completed unit of prbc's.tolerated well.given all dc instructions and hep lock out.taken to lobby by trust and estates attorney.ambulating.to be picked up for dc home.
== END 2020-03-19 18:55 | disposition home or self-care (01) | DRG 640 ==
LOC: ER 18:52 → TRANSITION 21:18 → TELE 03-17 07:15
PROVIDERS: ADMIT Nurse Practitioner Acute Care; ATTEND Nurse Practitioner Acute Care
PROC: 5A1D70Z Performance of Urinary Filtration, Intermittent, Less than 6 Hours Per Day (ICD-10-PCS; 2020-03-17)
PROC: 30233N1 Transfusion of Nonautologous Red Blood Cells into Peripheral Vein, Percutaneous Approach (ICD-10-PCS; principal; 2020-03-19)
DX: E87.5 Hyperkalemia (principal); N18.6 End stage renal disease; I12.0 Hypertensive chronic kidney disease with stage 5 chronic kidney disease or end stage renal disease; I16.0 Hypertensive urgency; I25.10 Atherosclerotic heart disease of native coronary artery without angina pectoris; Z99.2 Dependence on renal dialysis; D69.6 Thrombocytopenia, unspecified; Z79.899 Other long term (current) drug therapy; Z91.15 Patient's noncompliance with renal dialysis; E11.22 Type 2 diabetes mellitus with diabetic chronic kidney disease; E78.5 Hyperlipidemia, unspecified; D63.8 Anemia in other chronic diseases classified elsewhere; Z82.49 Family history of ischemic heart disease and other diseases of the circulatory system; F17.200 Nicotine dependence, unspecified, uncomplicated; F12.90 Cannabis use, unspecified, uncomplicated; Z91.14 Patient's other noncompliance with medication regimen; Z91.19 Patient's noncompliance with other medical treatment and regimen; N25.0 Renal osteodystrophy; E87.70 Fluid overload, unspecified
CPT/HCPCS: 36415; 71045-TC; 80048-TC; 80076-TC; 82962-TC; 83690-TC; 83735-TC; 84100-TC; 84484-TC; 85025-TC; 85730-TC; 86706; 86850-TC; 87340; 90935-TC; C9803; G0378; J1815; J2405; J3490; J7030; J7050; J7070; P9016-BL

== ENCOUNTER 2020-03-31 10:11 | Inpatient (IN) | payer MEDICARE ==
[~2020-03-31] VITALS: Ht 182.9 cm; Wt 68.0 kg
[2020-03-31] VITALS (12 sets, daily range): BP systolic 104–192; BP diastolic 56–119
[~2020-03-31 10:11] MED LIST changes: +MINO2.5T PO; +NIFE-35 PO; +SEVE800T7 PO
--- NOTE | 2020-03-31 10:11 | NUR ---
PT BIB SELF SENT BY PM FOR LOW H/H. PT STATED HE FEELS TIRED. PT IS AAOX4, NOT IN RESPIRATORY DISTRESS, HOOKED TO TYPING BOOKKEEPER, KEPT RESTED AND COMFORTABLE, WILL CONTINUE TO MONITOR.
--- NOTE | 2020-03-31 10:20 | NUR ---
SAE AT BEDSIDE FOR EVAL
--- NOTE | 2020-03-31 10:30 | NUR ---
IV LINE ESTABLISHED BLOOD DRAWN AND SENT TO LAB.
[2020-03-31] MEDS ORDERED: NIFE60TA73 PO (10:45)
[2020-03-31] MEDS ORDERED: SEVE800T8 PO (10:45)
[2020-03-31 10:49] LABS: BASOPHILS # (AUTO) 0.1 /CMM (0.0-0.2); LYMPHOCYTES # (AUTO) 0.7 /CMM (0.8-4.8); MONOCYTES # (AUTO) 0.4 /CMM (0.1-1.30)
[2020-03-31 10:51] LABS: EOSINOPHILS % (AUTO) 4.5 % (0.0-6.0); LYMPHOCYTES % (AUTO) 14.5 % (20.0-44.0); MEAN CORPUSCULAR HGB CONC 33 g/dl (31.0-36.0); MEAN CORPUSCULAR VOLUME 98 fL (80-96); MONOCYTES % (AUTO) 7.7 % (2.0-12.0); NEUTROPHILS # (AUTO) 3.7 /CMM (1.8-8.9); NEUTROPHILS % (AUTO) 72.3 % (43.0-81.0); PLATELET COUNT (AUTO) 151 /CMM (150-450); WHITE BLOOD COUNT (AUTO) 5.1 K/uL (4.3-11.0)
[2020-03-31 10:54] LABS: RED BLOOD CELL COUNT(AUTO) 1.38 MIL/uL (4.5-6.0)
[2020-03-31 10:55] LABS: HEMATOCRIT 14 % (39-51); HEMOGLOBIN 4.5 g/dL (13.5-17.5)
[2020-03-31 11:09] LABS: ALBUMIN 3.6 g/dL (3.4-5.0); BILIRUBIN,DIRECT 0.2 mg/dL (0.0-0.2); BILIRUBIN,TOTAL 0.7 mg/dL (0.2-1.0); CALCIUM, SERUM 8.7 mg/dL (8.5-10.1); POTASSIUM 6.1 mmol/L (3.5-5.1); TOTAL PROTEIN, SERUM 7.6 g/dL (6.4-8.2)
--- NOTE | 2020-03-31 11:15 | NUR ---
BRAILLE TRANSCRIBER AT BEDSIDE FOR XRAY.
[2020-03-31 11:21] LABS: CREATININE 19.2 mg/dL (0.6-1.3)
--- NOTE | 2020-03-31 11:32 | NUR ---
CALLED DR. MARTINES TO CALL US BACK.
--- NOTE | 2020-03-31 11:35 | NUR ---
COVID SPECIMEN OBTAINED AND SENT TO LAB.
--- NOTE | 2020-03-31 11:36 | NUR ---
[facility] CALLED HEAVY REPAIRER PAGED.
--- NOTE | 2020-03-31 11:39 | NUR ---
ROOM GIVEN [phone]
--- NOTE | 2020-03-31 11:44 | NUR ---
REPORT GIVEN TO PARKER SEWELL FOR SPENCER.
[2020-03-31] MEDS ORDERED: SODIUM POLYSTYRENE SULF. PWD 15 GM UDC PO ONE (12:00)
[2020-03-31] MEDS ORDERED: SODIUM POLYSTYRENE SULFONATE 15 G/60 ML BOTTLE ONE (12:03)
[2020-03-31] MEDS ORDERED: ACETAMINOPHEN 325 MG TABLET PO PRN (12:30)
[2020-03-31] MEDS ORDERED: ONDANSETRON HCL/PF 4 MG/2 ML VIAL IVP PRN (12:30)
[2020-03-31] MEDS ORDERED: MAG HYDROX/AL HYDROX/SIMETH 30 ML UDC PO PRN (12:30)
[2020-03-31] MEDS ORDERED: HYDROCODONE/APAP 5/325MG TABLET PO PRN (12:30)
[2020-03-31] MEDS ORDERED: MAGNESIUM HYDROXIDE 30 ML UDC PO PRN (12:30)
[2020-03-31] MEDS ORDERED: Z GUARD REMEDY 2 OZ OINT TP PRN (12:30)
--- NOTE | 2020-03-31 13:00 | NUR ---
tele disaster recovery specialist: admission admitted this 30 year old male pt from [facility] with dx: anemia. pt to get hd tx with 2 units of prbc. pt is awake, ambulatory, alert and oriented x 4. no c/o pain or any discomfort. oriented to room and surroundings. pt has taking his nifedipine med earlier due to high blood pressure. consent for hd and blood transfusion signed by pt. hd nurse notified and made aware. instructed to call for assistance. Addendum: 03/31/20 at 1442 by MELODIE DELUCA MOSHGIACH pt denies any bleeding.
--- NOTE | 2020-03-31 13:30 | NUR ---
tele bitumastic applier: notes tele sinus rhythm=78-83. served late lunch. instructed to call for assistance.
[2020-03-31] MEDS: SEVELAMER CARBONATE 800 MG TABLET PO SCH ×2 (14:17→17:41)
--- NOTE | 2020-03-31 14:40 | NUR ---
tele certified orthotic fitter: notes resting comfortable in bed, still awaiting for hd nurse to come. will continue to monitor.
[2020-03-31] MEDS: hydrALAZINE HCL 50 MG TABLET PO SCH ×2 (17:00→19:00)
[2020-03-31] MEDS: CARVEDILOL 12.5 MG TABLET PO SCH ×2 (17:00→19:00)
--- NOTE | 2020-03-31 17:09 | NUR ---
tele package collector: notes pt sounds asleep. held b/p meds, pt for hd tx. awaiting for hd nurse to come.
--- NOTE | 2020-03-31 17:19 | NUR ---
tele maintenance engineer: nephro consult dr. roberts at bedside at this time.
--- NOTE | 2020-03-31 18:00 | NUR ---
tele metal trades instructor: notes 2 units of prbc verified with another nurse and given to hd nurse to administer with hd tx. will continue to monitor. Addendum: 03/31/20 at 1904 by MELODIE BOWMANN started 1 unit of prbc by hd nurse. afebrile. will continue to monitor.
--- NOTE | 2020-03-31 18:30 | NUR ---
tele pattern scratcher: notes 1 unit of prbc completed without a/r noted. 2nd unit started by hd nurse.
--- NOTE | 2020-03-31 18:55 | NUR ---
tele studio producer: notes 2 units of prbc completed without a/r noted. hd in progress. needs attended.
--- NOTE | 2020-03-31 19:10 | NUR ---
tele supervisor taping: noted report given to nguyễn (rn) for continuity of care.
--- NOTE | 2020-03-31 19:40 | NUR ---
HARVEST SUPERVISOR OPENING NOTES PT RECEIVED AT BEDSIDE. ALERT AND ORIENTED X4. CALM, COOPERATIVE. CURRENTLY ON HEMODIALYSIS. WILL RECEIVE REPORT AFTER. PT RECEIVED 2 UNITS OF PRBCS DUE TO LOW 4.5 HEMOGLOBIN. WILL CONTINUE TO MONITOR H&H. AV SHUNT R ARM, LEFT HAND #22. INTACT, PATENT, FLUSHING WELL. NO OCCLUSIONS, NO INFILTRATION. WILL CONTINUE TO MONITOR.
--- NOTE | 2020-03-31 20:13 | NUR ---
MUSICAL INSTRUMENT MECHANIC NOTES HD ENDED. REPORT GIVEN BY CAT. 3L OUTPUT. VITAL SIGNS: 180/ 90, PULSE 81.
[2020-03-31] MEDS: NIFEdipine XL (30MG) 30 MG TAB PO SCH (20:28)
[2020-03-31] MEDS: ENALAPRILAT INJ (1.25 MG/ML) 1.25 MG/ML VIAL IV PRN (23:57)
[2020-04-01] VITALS (11 sets, daily range): BP systolic 168–186; BP diastolic 80–113
--- NOTE | 2020-04-01 00:03 | NUR ---
AGILE DEVELOPER NOTES BP 184/ 113. NOTIFIED DR. TAVERAS. ADMINISTERED VASOTEC 1.25 IVP ORDERED. WILL CONTINUE TO MONITOR.
--- NOTE | 2020-04-01 00:30 | NUR ---
DIRECTOR OF MANAGED SERVICES NOTES PT BP 172/92. WILL CONTINUE TO MONITOR.
--- NOTE | 2020-04-01 06:44 | NUR ---
ASSEMBLER DECK AND HULL CLOSING NOTES PT LAYING IN BED. ALERT AND ORIENTED X4. CALM, COOPERATIVE. PT ON ROOM AIR. TOLERATING WELL. OXYGEN SATURATION >95%. PT RECEIVED 2 UNITS OF PRBCs. NO ADVERSE EFFECTS NOTED. HD OUTPUT 3L. PT INCREASE BP @0000. NOTIFIED. ORDERED/ ADMINISTERED VASOTECT 1.25 IVP. AV SHUNT RIGHT ARM. LEFT HAND #20. INTACT, PATENT, FLUSHING WELL. NO OCCLUSIONS. NO INFILTRATION NOTED. SAFETY PRECAUTIONS IN PLACE. BED LOCKED. SEMI FOWLERS POSITION. CALL LIGHT WITHIN REACH. WILL ENDORSE TO UPCOMING SHIFT. WILL CONTINUE PLAN OF CARE.
[2020-04-01 06:50] LABS: BASOPHILS % (AUTO) 1.1 % (0.0-2.0); EOSINOPHILS % (AUTO) 3.5 % (0.0-6.0); LYMPHOCYTES # (AUTO) 0.8 /CMM (0.8-4.8); LYMPHOCYTES % (AUTO) 24.9 % (20.0-44.0); MEAN CORPUSCULAR HGB CONC 35 g/dl (31.0-36.0); MEAN CORPUSCULAR VOLUME 94 fL (80-96); MONOCYTES # (AUTO) 0.3 /CMM (0.1-1.30); MONOCYTES % (AUTO) 8.6 % (2.0-12.0); NEUTROPHILS # (AUTO) 1.9 /CMM (1.8-8.9); NEUTROPHILS % (AUTO) 61.9 % (43.0-81.0); PLATELET COUNT (AUTO) 238 /CMM (150-450); WHITE BLOOD COUNT (AUTO) 3.1 K/uL (4.3-11.0)
[2020-04-01 07:01] LABS: CALCIUM, SERUM 8.3 mg/dL (8.5-10.1); POTASSIUM 4.7 mmol/L (3.5-5.1)
[2020-04-01 07:11] LABS: CREATININE 12.5 mg/dL (0.6-1.3)
[2020-04-01 07:21] LABS: HEMOGLOBIN 5.9 g/dL (13.5-17.5); RED BLOOD CELL COUNT(AUTO) 1.83 MIL/uL (4.5-6.0)
[2020-04-01 07:22] LABS: HEMATOCRIT 17 % (39-51)
[2020-04-01] MEDS: SEVELAMER CARBONATE 800 MG TABLET PO SCH ×4 (07:56→16:34)
[2020-04-01] MEDS: NIFEdipine XL (30MG) 30 MG TAB PO SCH ×2 (07:58→23:18)
[2020-04-01] MEDS: hydrALAZINE HCL 50 MG TABLET PO SCH ×2 (07:59→16:35)
[2020-04-01] MEDS: CARVEDILOL 12.5 MG TABLET PO SCH ×2 (07:59→16:34)
[2020-04-01] MEDS: ENALAPRILAT INJ (1.25 MG/ML) 1.25 MG/ML VIAL IV PRN ×2 (09:15→14:13)
[2020-04-01 10:40] LABS: IRON, SERUM 80 ug/dl (50-175); TOTAL IRON BINDING CAPACITY 161 ug/dl (250-450)
--- NOTE | 2020-04-01 18:00 | NUR ---
received pt. in am,hgb and hct low.dr. clark informed,to write orders for transfusion with hemodialysis today.had vasotec iv x2 in addition to multiple po bp meds.
--- NOTE | 2020-04-01 18:30 | NUR ---
pt. did receive 2 units of blood.bp remains high.
--- NOTE | 2020-04-01 19:45 | NUR ---
REGIONAL VICE PRESIDENT LIFE SALES OPENING NOTES PATIENT A/OX4; ABLE TO MAKE NEEDS KNOWN. ON ROOM AIR; TOLERATING WELL. ON CARDIAC TELE MONITORING; SINUS RHYTHM AND HR AT 80'S. NO C/O PAIN OR DISCOMFORT. IV ON L HAND #22; PATENT AND INTACT. HD AV SHUNT TO R ARM; BRUIT AND THRILL PRESENT; DRESSING C/D/I . WILL CONTINUE TO MONITOR. SAFETY MEASURES ARE IN PLACE; BED IN LOWEST LOCKED POSITION, SIDE RAILS UP X 2 AND CALL LIGHT IS WITHIN REACH. WILL CONTINUE TO MONITOR PT.
[2020-04-02] VITALS: BP 176/97
--- NOTE | 2020-04-02 02:30 | NUR ---
IT TRAINER NOTE BP 177/95 ADMINISTERED VASOTEC ORDERED. DENIES S/S OF HTN. WILL CONTINUE TO MONITOR.
[2020-04-02] MEDS: ENALAPRILAT INJ (1.25 MG/ML) 1.25 MG/ML VIAL IV PRN (02:55)
[2020-04-02 04:00] VITALS: BP 177/98
[2020-04-02 06:53] LABS: BASOPHILS # (AUTO) 0.1 /CMM (0.0-0.2); BASOPHILS % (AUTO) 1.3 % (0.0-2.0); EOSINOPHILS % (AUTO) 3.8 % (0.0-6.0); HEMATOCRIT 25 % (39-51); HEMOGLOBIN 8.6 g/dL (13.5-17.5); LYMPHOCYTES # (AUTO) 0.9 /CMM (0.8-4.8); LYMPHOCYTES % (AUTO) 21.7 % (20.0-44.0); MEAN CORPUSCULAR HGB CONC 35 g/dl (31.0-36.0); MEAN CORPUSCULAR VOLUME 94 fL (80-96); MONOCYTES # (AUTO) 0.4 /CMM (0.1-1.30); MONOCYTES % (AUTO) 9.7 % (2.0-12.0); NEUTROPHILS # (AUTO) 2.6 /CMM (1.8-8.9); NEUTROPHILS % (AUTO) 63.5 % (43.0-81.0); PLATELET COUNT (AUTO) 167 /CMM (150-450); RED BLOOD CELL COUNT(AUTO) 2.64 MIL/uL (4.5-6.0); WHITE BLOOD COUNT (AUTO) 4.1 K/uL (4.3-11.0)
--- NOTE | 2020-04-02 07:30 | NUR ---
JEAN CLAUDE RN OPENING NOTES RECEIVED PATIENT AWAKE IN BED IN NO ACUTE SIGNS OF DISTRESS. A/O X 4. ABLE TO MAKE NEEDS KNOWN, DENIES PAIN OR ANY DISCOMFORTS AT THIS TIME. ON ROOM AIR, TOLERATING WELL WITH NO SOB NOTED. EXTERNAL MISDRAW HAND SHOWS NSR WITH HR ON THE 80'S, NO C/O CARDIAC DISTRESS VOICED. AV SHUNT ON RFA IN PLACE WITH POSITIVE BRUIT/SHRILL NOTED. IV ACCESS ON LEFT HAND INTACT, PATENT AND FLUSHING WELL. SAFETY MEASURES ARE IN PLACE; BED IS LOCKED AND IN THE LOW POSITION, SIDE RAILS UP X 2 AND CALL LIGHT IS WITHIN REACH. WILL CONTINUE TO MONITOR PT.
[2020-04-02 07:42] LABS: CALCIUM, SERUM 9.2 mg/dL (8.5-10.1); POTASSIUM 4.1 mmol/L (3.5-5.1)
[2020-04-02 07:44] LABS: CREATININE 9.8 mg/dL (0.6-1.3)
[2020-04-02 08:00] VITALS: BP 186/100
[2020-04-02] MEDS: SEVELAMER CARBONATE 800 MG TABLET PO SCH ×3 (08:28→17:08)
[2020-04-02] MEDS: NIFEdipine XL (30MG) 30 MG TAB PO SCH (08:29)
[2020-04-02] MEDS: hydrALAZINE HCL 50 MG TABLET PO SCH ×2 (08:29→17:09)
[2020-04-02] MEDS: CARVEDILOL 12.5 MG TABLET PO SCH ×2 (08:31→17:09)
--- NOTE | 2020-04-02 08:38 | NUR ---
CRYSTAL LAPPER OPENING NOTES PATIENT A/OX4; ABLE TO MAKE NEEDS KNOWN. ON ROOM AIR; TOLERATING WELL. ON CARDIAC TELE MONITORING; SINUS RHYTHM AND HR AT 80'S. NO C/O PAIN OR DISCOMFORT. IV ON L HAND #22; PATENT AND INTACT. HD AV SHUNT TO R ARM; BRUIT AND THRILL PRESENT; DRESSING C/D/I . WILL CONTINUE TO MONITOR. Addendum: 04/02/20 at 0843 by BELLE THORPE RN CRYSTAL LAPPER CLOSING NOTES PATIENT A/OX4; ABLE TO MAKE NEEDS KNOWN. ON ROOM AIR; TOLERATING WELL. ON CARDIAC TELE MONITORING; SINUS RHYTHM AND HR AT 80'S. NO C/O PAIN OR DISCOMFORT. IV ON L HAND #22; PATENT AND INTACT. HD AV SHUNT TO R ARM; BRUIT AND THRILL PRESENT; DRESSING C/D/I . WILL CONTINUE TO MONITOR. SAFETY MEASURES ARE IN PLACE; BED IS LOCKED AND IN THE LOW POSITION, SIDE RAILS UP X 2 AND CALL LIGHT IS WITHIN REACH. WILL CONTINUE TO MONITOR PT.
--- NOTE | 2020-04-02 11:03 | NUR ---
RN NOTES DR ORSAS WITH ORDER TO COLLECT STOOL FOR OB. COLLECTED AND CALLED LAB, SPOKE TO SAMUEL TO PICK-UP SPECIMEN FROM [facility].
[2020-04-02 16:00] VITALS: BP 152/83
[2020-04-02 17:09] VITALS: BP 152/83
[2020-04-02 17:32] LABS: OCCULT BLOOD STOOL NEGATIVE (NEGATIVE)
--- NOTE | 2020-04-02 18:43 | NUR ---
DIGITAL PERFORMANCE ANALYST CLOSING NOTES PATIENT RESTING IN BED AND WATCHING TV AT THIS TIME. A/O X 4. ABLE TO MAKE NEEDS KNOWN. ON ROOM AIR, TOLERATING WELL WITH NO SOB NOTED. EXTERNAL WELDING INSPECTOR SHOWS NSR WITH HR ON THE 80'S, NO C/O CARDIAC DISTRESS VOICED. AV SHUNT ON RFA IN PLACE WITH POSITIVE BRUIT/SHRILL NOTED. IV ACCESS ON LEFT HAND INTACT, PATENT AND FLUSHING WELL. SAFETY MEASURES ARE IN PLACE: BED IS LOCKED AND IN THE LOW POSITION, SIDE RAILS UP X 2 AND CALL LIGHT IS WITHIN REACH. PT FOR DISCHARGED HOME TONIGHT AND WILL BE PICKED-UP BY HIS COUSIN. WILL ENDORSE TO CAPTION WRITER NURSE
--- NOTE | 2020-04-02 19:30 | NUR ---
TELE/RN OPENING NOTES PATIENT IN BED RESTING. PATIENT IS ALERT AND ORIENTED X 4. PATIENTS BREATHING IS EVEN AND UNLABORED. NO SIGNS OF RESPIRATORY DISTRESS OR SOB NOTED. PATIENT HAS IV ACCESS ON LEFT HAND INTACT AND FLUSHING WELL. TELE READING SR 85. SAFETY MEASURES ARE IN PLACE, BED IS LOCKED AND PLACED IN THE LOW POSITION, SIDE RAILS UP X 2, CALL LIGHT IS WITHIN REACH. PATIENT TO BE D/C TONIGHT, WILL CONTINUE TO MONITOR.
--- NOTE | 2020-04-02 21:25 | NUR ---
TELE/RN CLOSING NOTE PATIENT IS BEING D/C. PATIENT BEING PICKED UP BY BROTHER. PATIENT BROTHER IS WAITING DOWN STAIRS FOR PATIENT. PATIENT V/S SIGNS ARE WNL, PATIENT IS ALERT AND ORIENTED X 4. PATIENT BREATHING IS EVEN AND UNLABORED. NO SIGNS OF SOB OR RESPIRATORY DISTRESS NOTED. PATIENT IV ACCESS HAS BEEN REMOVED AND ID BAND REMOVED. PATIENT SIGNED ALL PAPER WORK AND PROVIDED WITH COPIES. PATIENT HAS ALL BELONGINGS WITH HIM. PATIENT IS ABLE TO AMBULATE BY SELF.
== END 2020-04-02 21:30 | disposition home or self-care (01) | DRG 640 ==
LOC: ER 10:18 → TELE 12:13
PROVIDERS: ADMIT Internal Medicine; ATTEND Internal Medicine
PROC: 5A1D70Z Performance of Urinary Filtration, Intermittent, Less than 6 Hours Per Day (ICD-10-PCS; principal; 2020-03-31)
PROC: 30233N1 Transfusion of Nonautologous Red Blood Cells into Peripheral Vein, Percutaneous Approach (ICD-10-PCS; 2020-03-31)
DX: E87.5 Hyperkalemia (principal); N18.6 End stage renal disease; I12.0 Hypertensive chronic kidney disease with stage 5 chronic kidney disease or end stage renal disease; I16.0 Hypertensive urgency; D63.8 Anemia in other chronic diseases classified elsewhere; I25.10 Atherosclerotic heart disease of native coronary artery without angina pectoris; D50.0 Iron deficiency anemia secondary to blood loss (chronic); E11.22 Type 2 diabetes mellitus with diabetic chronic kidney disease; E78.5 Hyperlipidemia, unspecified; Z91.19 Patient's noncompliance with other medical treatment and regimen; Z99.2 Dependence on renal dialysis; F17.200 Nicotine dependence, unspecified, uncomplicated; F12.90 Cannabis use, unspecified, uncomplicated; Z91.14 Patient's other noncompliance with medication regimen; N25.0 Renal osteodystrophy; Z82.49 Family history of ischemic heart disease and other diseases of the circulatory system
CPT/HCPCS: 36415; 71045-TC; 80048-TC; 80076-TC; 82272-TC; 83540-TC; 85025-TC; 85730-TC; 86850-TC; 87081-TC; G0378; J3490; J7040; P9016-BL